=== PATIENT | male | born 1945 | race Caucasian/White ===

== ENCOUNTER 2017-06-10 13:09 | Inpatient (IN) | payer OTHER ==
[~2017-06-10] VITALS: Ht 172.7 cm; Wt 102.1 kg
[~2017-06-10 13:09] MED LIST: AMITRIPTYLINE H75 M1 PO; ASPIRIN EC81 M1 PO; BENTYL 20 MG TA20 M1 PO; CLONAZEPAM 0.50.5 M1 PO; COMBIVENT INH; COREG25 MG PO; DUONEB 2.5-0.5 M3 ML; FINASTERIDE5 MG PO; GLUCOPHAGE1000 MG PO; GLUCOTROL5 MG PO; HYDROCODON-ACE1 EAC7 PO; IMDUR 30 MG TAB30 M1; LEVAQUIN 750 M750 MG PO; LISINOPRIL20 MG PO; OMEPRAZOLE 20 M20 M1 PO; PREDNISONE 10 M10 MG; PREDNISONE50 MG PO; SIMVASTATIN40 MG PO; TERAZOSIN HCL10 MG PO; VITAMIN D1000 UNI1 PO; WELLBUTRIN 75 M75 M1; [UNRECOGNIZED DRUG - OTHER]
[2017-06-10 13:10] VITALS: BP 185/104
[2017-06-10] MEDS ORDERED: ACCUNEB SO1.25 MG/1 INH (13:21)
[2017-06-10] MEDS ORDERED: SILDENAFIL PO (13:25)
[2017-06-10] MEDS ORDERED: VENTOLIN HFA 1818 GM INH ×2 (13:25→17:30)
[2017-06-10] MEDS ORDERED: QUETIAPINE FUM100 MG PO (13:28)
[2017-06-10] MEDS ORDERED: ASMANEX220 MC2 INH (13:28)
[2017-06-10] MEDS ORDERED: PRAVACHOL20 MG PO (13:28)
[2017-06-10] MEDS ORDERED: COZAAR 50 MG TA50 M2 PO (13:28)
[2017-06-10 13:37] LABS: ABSOLUTE EOSINOPHILS 0.7 thou/uL (0.0-0.7); ABSOLUTE LYMPHOCYTES 1.5 thou/uL (0.8-5.3); ABSOLUTE MONOCYTES 0.7 thou/uL (0.0-1.2); ABSOLUTE NEUTROPHILS 5.5 thou/uL (1.6-8.1); BASOPHILS 0.5 %; EOSINOPHILS 8.5 %; HEMATOCRIT 48.7 % (42.0-52.0); HEMOGLOBIN 16.7 gm/dL (14.0-18.0); LYMPHOCYTES 17.4 %; MCH 33.4 pg (26.0-34.0); MCHC 34.3 g/dL (28.0-37.0); MCV 97.4 fL (80.0-100.0); MONOCYTES 8.4 %; MPV 9.5 fl. (7.2-11.1); NUCLEATED RBCS 0 /100WBC; PLATELET COUNT* 186 thou/uL (150-400); POLYS 65.2 %; RDW-CV 13.1 % (10.5-14.5); WBC 8.5 thou/uL (4.0-11.0)
[2017-06-10 13:45] LABS: CALCIUM 8.9 mg/dL (8.5-10.1); CREATININE 1.1 mg/dL (0.6-1.3); POTASSIUM 4.3 mmol/L (3.5-5.1)
[2017-06-10 13:49] LABS: ALBUMIN 3.9 g/dL (3.4-5.0); MAGNESIUM 1.7 mg/dL (1.8-2.4); TOTAL BILIRUBIN 0.6 mg/dL (<0.1-1.0); TOTAL PROTEIN 7.5 g/dL (6.4-8.2)
[2017-06-10 14:44] LABS: INFLUENZA A ANTIGEN None Detected (None Detect); INFLUENZA B ANTIGEN None Detected (None Detect)
[2017-06-10 15:06] LABS: BE 1.7 mmol/L (-2 to +3); HCO3 27.2 mmol/L (22.0-26.0); PCO2 45.4 mmHg (35.0-45.0); PO2 111.6 mmHg (75.0-100.0); pH 7.395 (7.340-7.450)
[2017-06-10 16:27] VITALS: BP 176/99
[2017-06-10 16:29] VITALS: BP 137/76
[2017-06-10] MEDS ORDERED: NICOTINE LOZENGE2 M1 PO (17:15)
[2017-06-10] MEDS ORDERED: BENTYL 20 MG TA20 M1 PO (17:20)
[2017-06-10] MEDS ORDERED: TIOTROP INH (17:26)
[2017-06-10] MEDS ORDERED: OLODATEROL INH (17:26)
[2017-06-10] MEDS ORDERED: ALBUTEROL2.5 MG/0.5 INH (17:29)
[2017-06-10 20:00] VITALS: BP 171/106
[2017-06-11] VITALS (7 sets, daily range): BP systolic 139–166; BP diastolic 71–91
[2017-06-11 05:35] LABS: CALCIUM 8.8 mg/dL (8.5-10.1); CREATININE 1.1 mg/dL (0.6-1.3); POTASSIUM 4.1 mmol/L (3.5-5.1)
[2017-06-11 05:40] LABS: HEMATOCRIT 43.7 % (42.0-52.0); MCH 33.4 pg (26.0-34.0); MCHC 34.3 g/dL (28.0-37.0); MCV 97.3 fL (80.0-100.0); MPV 9.8 fl. (7.2-11.1); NUCLEATED RBCS 0 /100WBC; PLATELET COUNT* 187 thou/uL (150-400); RBC 4.49 mil/uL (4.50-6.00); RDW-CV 13.1 % (10.5-14.5); WBC 8.9 thou/uL (4.0-11.0)
[2017-06-11 06:40] LABS: ABSOLUTE LYMPHOCYTES 0.7 thou/uL (0.8-5.3); ABSOLUTE MONOCYTES 0.2 thou/uL (0.0-1.2); PLATELET ESTIMATE ADEQUATE
--- NOTE | 2017-06-11 14:12 | 2DMMODE ---
[place] [address] 2 D/M-MODE ECHOCARDIOGRAM Name: OLI BEATTY JR Room: [address] IN [facility]#: [id number] Admission: 06/10/17 Attend Phys: Khurram Merino, Discharge: Date of : 45 Date of Service: 06/11/17 1412 Report #: [id number] THIS REPORT FOR: //name// APPROVED REPORT Study performed: 06/11/2017 09:34:04 EXAM: Comprehensive 2D, Doppler, and color-flow Echocardiogram Patient Location: In-Patient Room #: 219 Status: routine BSA: 2.17 HR: 78 bpm BP: 166/91 mmHg Rhythm: NSR Other Information Study Quality: Technically Limited Indications Congestive Heart Failure 2D Dimensions IVSd: 12.74 (7-11mm) LVOT Diam: 22.65 (18-24mm) LVDd: 52.87 mm PWd: 12.53 (7-11mm) Ascending Ao: 34.80 (22-36mm) LVDs: 20.28 (25-40mm) Aortic Root: 34.14 mm Volumes Left Atrial Volume (Systole) LA ESV Index: 21.50 mL/m2 Aortic Valve AoV Peak Jayden.: 1.36 m/s AO Peak Gr.: 7.43 mmHg LVOT Max P.24 mmHg AO Mean Gr.: 3.93 mmHg LVOT Mean P.70 mmHg LVOT Max V: 1.25 m/s AO V2 VTI: 25.50 cm LVOT Mean V: 0.74 m/s SANDY (VTI): 3.76 cm2 LVOT V1 VTI: 23.77 cm Mitral Valve E/A Ratio: 0.68 MV Decel. Time: 139.99 ms MV E Max Jayden.: 0.76 m/[place] [address] 2 D/M-MODE ECHOCARDIOGRAM Name: OLI BEATTY JR Room: [address] IN [facility]#: [id number] Admission: 06/10/17 Attend Phys: Khurram Merino, Discharge: Date of : 45 Date of Service: 06/11/17 1412 Report #: [id number] MV PHT: 40.60 ms MVA (PHT): 5.42 cm2 TDI E/Lateral E': 7.60 E/Medial E': 7.60 Medial E' Jayden.: 0.10 m/s Lateral E' Jayden.: 0.10 m/s Pulmonary Valve PV Peak Jayden.: 1.05 m/s PV Peak Gr.: 4.39 mmHg Left Ventricle The left ventricle is normal size. There is normal LV segmental wall motion. Mild concentric left ventricular hypertrophy. Left ventricular systolic function is normal. The left ventricular ejection fraction is within the normal range. LVEF is 60-65%. Grade I - abnormal relaxation pattern. Right Ventricle The right ventricle is normal size. The right ventricular systolic function is normal. Atria The left atrium size is normal. The right atrium size is normal. Aortic Valve The aortic valve is normal in structure. No aortic regurgitation is present. There is no aortic valvular stenosis. Mitral Valve The mitral valve is normal in structure. There is no mitral valve regurgitation noted. No evidence of mitral valve stenosis. Tricuspid Valve The tricuspid valve is normal in structure. Unable to assess PA pressure. Trace tricuspid regurgitation. Pulmonic Valve Pulmonic valve is not well visualized. There is no pulmonic valvular regurgitation. Great Vessels The aortic root is normal in size. IVC [place] [address] 2 D/M-MODE ECHOCARDIOGRAM Name: OLI BEATTY JR Room: [address]#: [id number] Admission: 06/10/17 Attend Phys: Khurram Merino, Discharge: Date of : 45 Date of Service: 06/11/17 1412 Report #: [id number] Pericardium There is no pericardial effusion. <Conclusion> Mild concentric left ventricular hypertrophy. LVEF is 60-65%. <ELECTRONICALLY SIGNED> By: Angel Ladd MD, FACC 06/11/17 141 11 11 Angel Ladd MD, FACC /INF
[2017-06-11 22:37] LABS: URINE BILIRUBIN NEGATIVE (Negative); URINE BLOOD NEGATIVE (Negative); URINE CLARITY CLEAR; URINE COLOR YELLOW; URINE GLUCOSE-RANDOM 1+ (Negative); URINE KETONES NEGATIVE (Negative); URINE LEUKOCYTES-REFLEX NEGATIVE (Negative); URINE NITRITE-REFLEX NEGATIVE (Negative); URINE PROTEIN NEGATIVE (Negative); URINE UROBILINOGEN 0.2 E.U./dl (0.2-1.0)
[2017-06-12 04:03] VITALS: BP 152/77
[2017-06-12 05:15] LABS: ABSOLUTE LYMPHOCYTES 1.1 thou/uL (0.8-5.3); ABSOLUTE MONOCYTES 0.6 thou/uL (0.0-1.2); ABSOLUTE NEUTROPHILS 14.4 thou/uL (1.6-8.1); BASOPHILS 0.1 %; HEMATOCRIT 43.3 % (42.0-52.0); HEMOGLOBIN 14.7 gm/dL (14.0-18.0); LYMPHOCYTES 6.6 %; MONOCYTES 3.7 %; MPV 9.7 fl. (7.2-11.1); NUCLEATED RBCS 0 /100WBC; PLATELET COUNT* 183 thou/uL (150-400); POLYS 89.6 %; RBC 4.47 mil/uL (4.50-6.00); RDW-CV 13.3 % (10.5-14.5); WBC 16.1 thou/uL (4.0-11.0)
[2017-06-12 05:28] LABS: CALCIUM 8.4 mg/dL (8.5-10.1); CREATININE 1.1 mg/dL (0.6-1.3); POTASSIUM 4.3 mmol/L (3.5-5.1)
[2017-06-12 08:35] VITALS: BP 160/91
[2017-06-12 12:00] VITALS: BP 152/91
[2017-06-12 16:12] VITALS: BP 158/79
[2017-06-12 20:00] VITALS: BP 169/94
[2017-06-13] VITALS: BP 154/77
[2017-06-13 04:11] VITALS: BP 163/91
[2017-06-13 04:43] LABS: HEMATOCRIT 44.7 % (42.0-52.0); MCH 32.8 pg (26.0-34.0); MCHC 33.5 g/dL (28.0-37.0); MCV 97.9 fL (80.0-100.0); RBC 4.57 mil/uL (4.50-6.00); RDW-CV 13.4 % (10.5-14.5); WBC 14.6 thou/uL (4.0-11.0)
[2017-06-13 05:02] LABS: CALCIUM 8.5 mg/dL (8.5-10.1); CREATININE 1.2 mg/dL (0.6-1.3); POTASSIUM 4.1 mmol/L (3.5-5.1)
[2017-06-13 07:40] VITALS: BP 178/101
--- NOTE | 2017-06-13 09:31 | CON ---
[address] [address] CONSULTATION Name: OLI BEATTY JR Room: [address] IN ..#: [id number] Admission: 06/10/17 Attend Phys: Khurram Merino MD Discharge: Date of : 45 Report #: [id number] THIS REPORT FOR: //name// CC: Khurram Nasha Juliano HISTORY OF PRESENT ILLNESS: The patient is a 71-year-old male patient with known history of COPD. Known chronic respiratory failure, on 2 liters oxygen at home for the last 2 years. He is an ex-smoker. He quit few months ago. He presented to the hospital with increasing shortness of breath. He actually was on his way to see his care connector, and [facility] He felt short of breath and decided to come to the ER. Apparently, he was in distress. He had to be placed on BiPAP in the ER. He reported he had cough on and off for the last few months, although when he gets steroids and antibiotic that improves. He reports at this time, he had been suffering with increasing wheeze, cough, mostly dry, although he feels congested for 3 weeks. He denied any sick contacts or recent travel. He denied any nausea and vomiting. He thought maybe he had some lower extremity edema. He has a history of obstructive sleep apnea, on CPAP at home. He spent the night on BiPAP last night. REVIEW OF SYSTEMS: He denied fever, chills, change in vision or change in hearing. He has no feeling of sinus congestion, dysarthria. Denied nausea or vomiting. Denied anxiety. The rest of the review system was negative. HOME MEDICATIONS: He is on amitriptyline, aspirin, omeprazole, finasteride, glipizide, DuoNebs and albuterol inhaler. He is on Viagra. He is on Asmanex, losartan and terazosin. ALLERGIES: PENICILLIN AND STELAZINE. PAST MEDICAL HISTORY: PTSD, hypertension, hyperlipidemia, diabetes mellitus, COPD, chronic respiratory failure and enlarged prostate. PAST SURGICAL HISTORY: Cholecystectomy, hemorrhoid surgery and tonsillectomy. FAMILY HISTORY: Reviewed with the patient and noncontributory. SOCIAL HISTORY: Ex-smoker, quit 2 months ago. Does not drink alcohol excessively. Does not abuse drugs. PHYSICAL EXAMINATION: VITAL SIGNS: On examination, he is on 3 liters oxygen with saturation more than 90%, blood pressure 142/74, breathing 20 times a minute, pulse rate of 64 and temperature 36.4. GENERAL APPEARANCE: Awake, alert and oriented. Speaks in full sentences, [place] [address] CONSULTATION Name: OLI BEATTY JR Room: [address] IN [facility]#: [id number] Admission: 06/10/17 Attend Phys: Khurram Merino MD Discharge: Date of : 45 Report #: [id number] although he is in some mild respiratory distress. He was on binasal cannula ____. HEENT: Head: Normocephalic and atraumatic. Pupils equal and reactive to light. Extraocular muscle movements intact. External ear looks healthy and normal. Nasal passage is patent. Oral cavity, Mallampati of 2-3 with moist mucous membrane. No thrush. NECK: Supple. No palpable lymph node. No palpable thyroid. Trachea central. CHEST: Diminished air movement bilaterally. Prolonged expiratory phase with extensive wheezes bilaterally. Chest on inspection looks normal. No deformity. HEART: S1 and S2. No murmur. No gallop. ABDOMEN: Benign. Soft, lax and nontender. Positive bowel sounds. No masses felt. LOWER EXTREMITIES: Trace edema. No calf tenderness. MUSCULOSKELETAL: No deformities. Normal inspection. No joint abnormality. PSYCHIATRIC: Mood and affect anxious. Good insight and judgment. NEUROLOGIC: No focal weakness. Cranial nerves grossly normal. LABORATORY DATA: His ABGs 7.39, 45, 111. This was done on BiPAP. His white blood count 8.9, hemoglobin of 15 and platelets of 187. Creatinine of 1.1. Potassium 4.1. His rapid influenza A and B scan was negative. He had a chest x-ray that did not show acute cardiopulmonary process. The CT of the chest showed significant emphysema, but no evidence of pulmonary embolus or definite infiltrate. CURRENT MEDICATIONS: Reviewed include levofloxacin. DuoNebs every 6 hours. Steroids every 8 hours. IMPRESSION: 1. Acute on chronic hypoxic respiratory failure. 2. Chronic obstructive pulmonary disease exacerbation. 3. Cough. 4. Dyspnea. The patient with chronic respiratory failure, known to have COPD, quit few months ago. He is on inhaled steroids, DuoNebs bronchodilators at home, presents with exacerbation. I would continue IV steroids because he is significantly wheezing at this point. Continue antibiotics. I will increase the frequency of nebulization treatments. It was noted that he is on Asmanex at home. He may benefit from long-acting beta-agonist, will probably benefit from changing his Asmanex to Dulera upon discharge. Meanwhile, I will put him on Brovana and Pulmicort during hospitalization. I will increase the frequency of his nebulization treatment. Also we will add Singulair to his medication management. [address] [address] CONSULTATION Name: OLI BEATTY JR Room: [address] IN [facility].#: [id number] Admission: 06/10/17 Attend Phys: Khurram Merino MD Discharge: Date of : 45 Report #: [id number] Thank you for the consult. We will follow along with you. Discussed with the patient. <ELECTRONICALLY SIGNED> By: Turner Montelongo MD 06/13/17 0931 1023 [id number] Montelongo MD /nt
[2017-06-13 12:02] VITALS: BP 153/83
[2017-06-13 20:00] VITALS: BP 164/88
[2017-06-14] VITALS (7 sets, daily range): BP systolic 139–188; BP diastolic 82–95
[2017-06-14 05:47] LABS: CALCIUM 8.7 mg/dL (8.5-10.1); CREATININE 1.2 mg/dL (0.6-1.3); POTASSIUM 3.7 mmol/L (3.5-5.1)
[2017-06-15 04:23] VITALS: BP 171/95
[2017-06-15 04:35] VITALS: BP 165/85
[2017-06-15 07:45] VITALS: BP 190/101
[2017-06-15] MEDS ORDERED: SINGULAIR 10 MG10 M1 PO (11:48)
[2017-06-15] MEDS ORDERED: LEVAQUIN 500 M500 M2 PO (11:49)
[2017-06-15] MEDS ORDERED: METFORMIN HCL500 MG PO (11:50)
[2017-06-15] MEDS ORDERED: SYMBICORT160 MCG/4. INH (11:51)
[2017-06-15 12:00] VITALS: BP 167/94
[2017-06-15 12:02] VITALS: BP 190/101
[2017-06-15] MEDS ORDERED: PREDNISONE 10 M10 MG PO (12:09)
[2017-06-15 20:00] VITALS: BP 169/98
[2017-06-16] VITALS: BP 164/83
[2017-06-16 08:06] VITALS: BP 158/92
[2017-06-16 08:41] VITALS: BP 158/92
== END 2017-06-16 11:54 | disposition home or self-care (01) | DRG 177 ==
LOC: M.ERS 13:09 → M.TBA-ER 14:52 → M.2W 14:52
PROVIDERS: Nurse Practitioner Family; Personal Emergency Response Attendant; ADMIT Internal Medicine
DX: J15.6 Pneumonia due to other Gram-negative bacteria (principal); R65.11 Systemic inflammatory response syndrome (SIRS) of non-infectious origin with acute organ dysfunction; J96.21 Acute and chronic respiratory failure with hypoxia; J44.0 Chronic obstructive pulmonary disease with (acute) lower respiratory infection; J44.1 Chronic obstructive pulmonary disease with (acute) exacerbation; I10 Essential (primary) hypertension; J40 Bronchitis, not specified as acute or chronic; E11.9 Type 2 diabetes mellitus without complications; E78.00 Pure hypercholesterolemia, unspecified; E78.5 Hyperlipidemia, unspecified; F41.9 Anxiety disorder, unspecified; F43.10 Post-traumatic stress disorder, unspecified; G47.33 Obstructive sleep apnea (adult) (pediatric); Z79.899 Other long term (current) drug therapy; Z90.49 Acquired absence of other specified parts of digestive tract; Z88.0 Allergy status to penicillin; Z88.8 Allergy status to other drugs, medicaments and biological substances; Z87.891 Personal history of nicotine dependence

== ENCOUNTER → 2017-10-05 | Outpatient (CLI) | payer BC ==
[~2017-10-05] MED LIST changes: +ACCUNEB SO1.25 MG/1 INH; +ALBUTEROL2.5 MG/0.5 INH; +ASMANEX220 MC2 INH; +COZAAR 50 MG TA50 M2 PO; +LEVAQUIN 500 M500 M2 PO; +METFORMIN HCL500 MG PO; +NICOTINE LOZENGE2 M1 PO; +OLODATEROL INH; +PRAVACHOL20 MG PO; +PREDNISONE 10 M10 MG PO; +QUETIAPINE FUM100 MG PO; +SILDENAFIL PO; +SINGULAIR 10 MG10 M1 PO; +SYMBICORT160 MCG/4. INH; +TIOTROP INH; +VENTOLIN HFA 1818 GM INH
== END ==
LOC: M.RAD 12:07
DX: J84.10 Pulmonary fibrosis, unspecified (principal); J44.9 Chronic obstructive pulmonary disease, unspecified

== ENCOUNTER → 2018-03-09 | Outpatient (CLI) | payer BC | LOC: M.RAD 14:29 | DX: K76.89 Other specified diseases of liver (principal); J84.10 Pulmonary fibrosis, unspecified ==

== ENCOUNTER 2018-09-08 14:15 | Emergency (ER) | payer BC ==
[~2018-09-08] VITALS: Ht 172.7 cm; Wt 90.7 kg
[2018-09-08] MEDS ORDERED: MAGOX 400400 MG PO (14:42)
[2018-09-08] MEDS ORDERED: OMEPRAZOLE20 M1 PO (14:42)
[2018-09-08] MEDS ORDERED: GLIPIZIDE 10 MG10 MG PO (14:42)
[2018-09-08 15:02] LABS: ABSOLUTE EOSINOPHILS 0.5 thou/uL (0.0-0.7); ABSOLUTE LYMPHOCYTES 1.2 thou/uL (0.8-5.3); ABSOLUTE MONOCYTES 0.9 thou/uL (0.0-1.2); ABSOLUTE NEUTROPHILS 7.5 thou/uL (1.6-8.1); BASOPHILS 0.4 %; EOSINOPHILS 4.6 %; HEMATOCRIT 48.8 % (42.0-52.0); HEMOGLOBIN 16.7 gm/dL (14.0-18.0); LYMPHOCYTES 11.9 %; MCH 33.3 pg (26.0-34.0); MCHC 34.2 g/dL (28.0-37.0); MCV 97.3 fL (80.0-100.0); MONOCYTES 8.6 %; MPV 9.8 fl. (7.2-11.1); NUCLEATED RBCS 0 /100WBC; PLATELET COUNT* 185 thou/uL (150-400); POLYS 74.5 %; RBC 5.02 mil/uL (4.50-6.00); RDW-CV 13.1 % (10.5-14.5)
[2018-09-08 15:10] LABS: APTT 26.1 Seconds (25.0-31.3); PROTIME 9.8 Seconds (9.20-11.50)
[2018-09-08 15:19] LABS: ANION GAP 7 mmol/L (7-16); BUN 14 mg/dL (7-18); CHLORIDE 104 mmol/L (98-107); CO2 31 mmol/L (21-32); CREATININE 1.1 mg/dL (0.6-1.3); GLUCOSE 122 mg/dL (70-99); POTASSIUM 4.5 mmol/L (3.5-5.1); SODIUM 142 mmol/L (136-145); TROPONIN-I LEVEL <0.06 ng/mL (<0.06)
[2018-09-08 15:20] LABS: ALBUMIN 3.5 g/dL (3.4-5.0); ALKALINE PHOSPHATASE 77 U/L (46-116); LIPASE 48 U/L (73-393); MAGNESIUM 1.9 mg/dL (1.8-2.4); NT-PRO BRAIN NAT PEPTIDE 55 pg/mL (<300); SGOT 24 U/L (15-37); SGPT 54 U/L (30-65); TOTAL BILIRUBIN 0.5 mg/dL (<0.1-1.0); TOTAL PROTEIN 6.9 g/dL (6.4-8.2)
[2018-09-08] MEDS ORDERED: ZPAK PO (15:41)
[2018-09-08] MEDS ORDERED: PREDNISONE50 MG PO (15:41)
[2018-09-08 16:00] VITALS: BP 161/83
--- NOTE | 2018-09-08 16:00 | EKG ---
[place] [address] ELECTROCARDIOGRAM REPORT Name: OLI BEATTY JR Room: [facility]#: [id number] Admission: 09/08/18 Attend Phys: Discharge: Date of : 45 Report #: [id number] THIS REPORT FOR: //name// [facility] ED Test Date: 2018-09-08 Test Time: 14:17:01 Pat Name: OIL BEATTY Department: Room: Gender: Store Clerk Checker: Ronel BOSS : 1945 Requested By: Carlos Eduardo Celaya Order Number: [id number] MD: Brian Tabor Measurements Intervals [place] Rate: 71 P: 74 LA: 202 QRS: 69 QRSD: 97 T: 55 QT: 379 QTc: 412 Interpretive Statements Sinus rhythm Low voltage, extremity leads Compared to ECG 09/10/2016 06:43:08 No significant changes Electronically Signed On 09-08-2018 16:00:39 CDT by Brian Tabor [email or web address] <ELECTRONICALLY SIGNED> By: Brian Tabor MD, [facility] 09/08/18 1600 1417 141 Brian Tabor MD, FACC /EPI
== END 2018-09-08 16:00 | disposition home or self-care (01) ==
LOC: M.ERS 14:15
PROVIDERS: Emergency Medicine Emergency Medical Services
DX: J44.1 Chronic obstructive pulmonary disease with (acute) exacerbation (principal); I10 Essential (primary) hypertension; E11.9 Type 2 diabetes mellitus without complications; E78.00 Pure hypercholesterolemia, unspecified; N40.0 Benign prostatic hyperplasia without lower urinary tract symptoms; Z90.49 Acquired absence of other specified parts of digestive tract; Z88.0 Allergy status to penicillin; Z88.8 Allergy status to other drugs, medicaments and biological substances

== ENCOUNTER 2019-02-04 11:19 | Inpatient (IN) | payer BC ==
[~2019-02-04] VITALS: Ht 172.7 cm; Wt 100.2 kg
[~2019-02-04 11:19] MED LIST changes: +COZAAR 50 MG TA50 M1 PO; -COZAAR 50 MG TA50 M2 PO; +GLIPIZIDE 10 MG10 MG PO; +MAGOX 400400 MG PO; +OMEPRAZOLE20 M1 PO; +ZPAK PO
[2019-02-04 11:20] VITALS: BP 123/74
[2019-02-04] MEDS ORDERED: ZETIA10 MG PO (11:37)
[2019-02-04] MEDS ORDERED: SPIRIVA RESPIMAT4 G1 INH (11:38)
[2019-02-04 11:42] LABS: ABSOLUTE LYMPHOCYTES 0.9 thou/uL (0.8-5.3); ABSOLUTE MONOCYTES 0.6 thou/uL (0.0-1.2); ABSOLUTE NEUTROPHILS 4.6 thou/uL (1.6-8.1); BASOPHILS 0.4 %; HEMATOCRIT 47.4 % (42.0-52.0); HEMOGLOBIN 16.7 gm/dL (14.0-18.0); LYMPHOCYTES 14.1 %; MCH 33.1 pg (26.0-34.0); MCHC 35.2 g/dL (28.0-37.0); MONOCYTES 9.5 %; MPV 9.6 fl. (7.2-11.1); NUCLEATED RBCS 0 /100WBC; PLATELET COUNT* 144 thou/uL (150-400); RBC 5.04 mil/uL (4.50-6.00); RDW-CV 12.8 % (10.5-14.5); WBC 6.1 thou/uL (4.0-11.0)
[2019-02-04 11:53] LABS: APTT 26.8 Seconds (25.0-31.3); PROTIME 10.7 Seconds (9.20-11.50)
[2019-02-04 11:54] LABS: ANION GAP 14 mmol/L (7-16); BUN 25 mg/dL (7-18); CALCIUM 8.5 mg/dL (8.5-10.1); CHLORIDE 99 mmol/L (98-107); CO2 24 mmol/L (21-32); GLUCOSE 135 mg/dL (70-99); SODIUM 137 mmol/L (136-145)
[2019-02-04 12:14] LABS: ALBUMIN 3.4 g/dL (3.4-5.0); ALKALINE PHOSPHATASE 63 U/L (46-116); NT-PRO BRAIN NAT PEPTIDE 577 pg/mL (<300); SGOT 40 U/L (15-37); SGPT 46 U/L (30-65); TOTAL BILIRUBIN 0.8 mg/dL (<0.1-1.0); TOTAL PROTEIN 6.8 g/dL (6.4-8.2); TROPONIN-I LEVEL <0.06 ng/mL (<0.06)
[2019-02-04 15:48] LABS: URINE BLOOD TRACE (Negative); URINE CLARITY CLEAR; URINE COLOR DARK YELLOW; URINE GLUCOSE-RANDOM NEGATIVE (Negative); URINE KETONES TRACE (Negative); URINE LEUKOCYTES-REFLEX NEGATIVE (Negative); URINE NITRITE-REFLEX NEGATIVE (Negative); URINE PROTEIN 2+ (Negative); URINE SPECIFIC GRAVITY >= 1.030 (1.005-1.030); URINE UROBILINOGEN 0.2 E.U./dl (0.2-1.0)
[2019-02-04 15:50] LABS: ICTOTEST (BILI CONFIRMATORY) Positive (Negative); URINE BILIRUBIN 1+ (Negative)
[2019-02-04 15:57] LABS: HYALINE CASTS >10 Many /LPF (None Seen); MUCUS 4-6 Moderate strn/LPF (None Seen)
[2019-02-04 15:58] LABS: CRYSTALS None Seen /LPF (None Seen); URINE RBC 0-2 Rare /HPF (0-2); URINE WBC-REFLEX 0-5 Rare /HPF (0-5)
[2019-02-04 15:59] LABS: BACTERIA-REFLEX 1-9 Few /HPF (None Seen); SQUAMOUS NONE SEEN /LPF (0-3)
[2019-02-04 18:49] VITALS: BP 103/49
[2019-02-04 19:06] VITALS: BP 117/58
[2019-02-04 20:00] VITALS: BP 120/64
[2019-02-05] VITALS: BP 114/50
[2019-02-05 05:19] LABS: ABSOLUTE LYMPHOCYTES 1.1 thou/uL (0.8-5.3); ABSOLUTE MONOCYTES 0.7 thou/uL (0.0-1.2); ABSOLUTE NEUTROPHILS 3.2 thou/uL (1.6-8.1); BASOPHILS 0.4 %; HEMATOCRIT 42.3 % (42.0-52.0); LYMPHOCYTES 22.3 %; MCHC 34.8 g/dL (28.0-37.0); MCV 94.9 fL (80.0-100.0); MONOCYTES 13.6 %; NUCLEATED RBCS 0 /100WBC; PLATELET COUNT* 128 thou/uL (150-400); POLYS 63.7 %; RBC 4.46 mil/uL (4.50-6.00); RDW-CV 12.9 % (10.5-14.5); WBC 5.1 thou/uL (4.0-11.0)
[2019-02-05 05:27] LABS: CALCIUM 7.8 mg/dL (8.5-10.1); CREATININE 1.5 mg/dL (0.6-1.3); MAGNESIUM 1.8 mg/dL (1.8-2.4); PHOSPHORUS* 2.1 mg/dL (2.5-4.9)
[2019-02-05 05:34] LABS: HEMOGLOBIN 14.7 gm/dL (14.0-18.0)
[2019-02-05 05:51] LABS: POTASSIUM 2.9 mmol/L (3.5-5.1)
[2019-02-05 08:00] VITALS: BP 114/59
--- NOTE | 2019-02-05 12:17 | EKG ---
[place] [address] ELECTROCARDIOGRAM REPORT Name: OLI BEATTY JR Room: [address] ADM IN ..#: [id number] Admission: 02/04/19 Attend Phys: Roberto Carlson MD Discharge: Date of : 45 Report #: [id number] THIS REPORT FOR: //name// [facility] ED Test Date: 2019-02-04 Test Time: 12:06:44 Pat Name: OLI BEATTY Department: Room: [facility] Gender: M Horse Trainer: DONNELL : 1945 Requested By: Carlos Eduardo Celaya Order Number: [id number] MD: Angel Ladd Measurements Intervals [place] Rate: 79 P: [place]: QRS: -8 QRSD: 94 T: 22 QT: 374 QTc: 429 Interpretive Statements sinus rhythm with pac's Low voltage, extremity leads Artifact in lead(s) I,III,aVR,aVL,aVF Compared to ECG 09/08/2018 14:17:01 pac's now present Electronically Signed On 02-05-2019 12:17:36 CDT by Angel Ladd [email or web address] <ELECTRONICALLY SIGNED> By: Angel Ladd MD, [facility] 02/05/19 1217 1206 1206 Angel Ladd MD, [facility] /EPI
[2019-02-05 16:00] VITALS: BP 91/46
[2019-02-05 20:00] VITALS: BP 112/64
[2019-02-06 04:03] VITALS: BP 138/90
[2019-02-06 05:42] LABS: CALCIUM 8.1 mg/dL (8.5-10.1); CREATININE 1.4 mg/dL (0.6-1.3); MAGNESIUM 1.9 mg/dL (1.8-2.4); POTASSIUM 3.4 mmol/L (3.5-5.1)
[2019-02-06 08:00] VITALS: BP 99/56
[2019-02-06 16:00] VITALS: BP 108/62
[2019-02-06 20:00] VITALS: BP 117/55
[2019-02-07 04:00] VITALS: BP 126/70
[2019-02-07 05:20] LABS: CALCIUM 7.7 mg/dL (8.5-10.1); MAGNESIUM 1.7 mg/dL (1.8-2.4); PHOSPHORUS* 2.5 mg/dL (2.5-4.9)
[2019-02-07 08:00] VITALS: BP 154/86
[2019-02-07 12:28] VITALS: BP 159/81
[2019-02-07 16:05] VITALS: BP 147/73
[2019-02-07 20:22] VITALS: BP 170/90
[2019-02-08 03:54] LABS: CALCIUM 7.9 mg/dL (8.5-10.1); CREATININE 0.8 mg/dL (0.6-1.3); POTASSIUM 3.4 mmol/L (3.5-5.1)
[2019-02-08 07:40] VITALS: BP 166/90
[2019-02-08] MEDS ORDERED: LOPERAMIDE 2 MG2 M1 PO (11:55)
[2019-02-08] MEDS ORDERED: FLAGYL500 M1 PO (11:56)
[2019-02-08] MEDS ORDERED: CIPRO500 MG PO (12:42)
[2019-02-08 12:43] VITALS: BP 166/90
== END 2019-02-08 13:04 | disposition home or self-care (01) | DRG 872 ==
LOC: M.ERS 11:19 → M.3W 12:25 → M.2W 12:25 → M.TBA-ER 12:25 → M.2W 18:50 → M.3W 02-07 12:18
PROVIDERS: Emergency Medicine Emergency Medical Services; ADMIT Family Medicine
DX: A41.89 Other specified sepsis (principal); N17.9 Acute kidney failure, unspecified; J96.11 Chronic respiratory failure with hypoxia; J44.9 Chronic obstructive pulmonary disease, unspecified; F43.10 Post-traumatic stress disorder, unspecified; E78.00 Pure hypercholesterolemia, unspecified; M19.90 Unspecified osteoarthritis, unspecified site; N40.0 Benign prostatic hyperplasia without lower urinary tract symptoms; E87.6 Hypokalemia; E83.42 Hypomagnesemia; E86.9 Volume depletion, unspecified; N18.3 Chronic kidney disease, stage 3 (moderate); I12.9 Hypertensive chronic kidney disease with stage 1 through stage 4 chronic kidney disease, or unspecified chronic kidney disease; E11.22 Type 2 diabetes mellitus with diabetic chronic kidney disease; K52.9 Noninfective gastroenteritis and colitis, unspecified; E86.0 Dehydration; Z99.81 Dependence on supplemental oxygen; Z90.49 Acquired absence of other specified parts of digestive tract; Z90.89 Acquired absence of other organs; Z79.899 Other long term (current) drug therapy; Z79.82 Long term (current) use of aspirin; Z79.84 Long term (current) use of oral hypoglycemic drugs; Z88.0 Allergy status to penicillin; Z88.8 Allergy status to other drugs, medicaments and biological substances; Z87.891 Personal history of nicotine dependence